=== PATIENT | male | born 1995 | race Caucasian/White ===

== ENCOUNTER 2020-07-18 17:11 | Emergency (ER) | payer OTHER, SELFPAY ==
[2020-07-18 17:20] VITALS: BP 149/77; PULSE 98; RESP 18; TEMP 36.7; O2SAT 99
--- NOTE | 2020-07-18 17:30 | ED.EAR ---
HPI - Ear Problem General Chief complaint: Ear Stated complaint: Left Ear Pain Time Seen by Provider: 07/18/20 17:30 Source: patient Mode of arrival: ambulatory Limitations: no limitations History of Present Illness HPI Narrative: 25 year old male with complaints of pain to his left ear since last pm with some decrease in his hearing and drainage with pain to his left ear starting today. Patient states that he also has some discomfort to the left side of his neck which feels like he has a swollen lymph node in his neck. Patient has some feelings of sinus congestion and drainage with some irritation to his throat with tonsils noted to be red and enlarged. Patient states history of previous ear infection to his left ear in the past. MD Complaint: ear pain, ear discharge, decreased hearing and other (sinus congestion and drainage and throat feels irritated) Location: left ear Duration: constant Severity: moderate Relieving factors: nothing Exacerbating factors: nothing Discharge from ear: Reports yes - clear Associated symptoms ear: decreased hearing, external ear tenderness, ear swelling and neck pain (enlarged lymph node) Treatment prior to arrival: none Related Data Home Medications Medication Instructions Recorded Confirmed No Home Medications 07/18/20 07/18/20 Allergies Allergy/AdvReac Type Severity Reaction Status Date / Time No Known Allergies Allergy Verified 07/18/20 17:36 Review of Systems Review of Systems: Narrative: CONSTITUTIONAL: Denies fever, chills, or sweats. EYES: Denies visual changes, redness, or discharge. ENT: Positive rhinorrhea, congestion, sore throat, left otalgia. CARDIOVASCULAR: Denies chest pain, palpitations, or edema. RESPIRATORY: Denies cough or dyspnea. GASTROINTESTINAL: Denies abdominal pain, nausea, vomiting, or diarrhea. GENITOURINARY: Denies dysuria or hematuria. SKIN: Denies rash or itching. MUSCULOSKELETAL: Denies back pain, joint pain, or myalgia. NEUROLOGIC: Denies headache, numbness, or weakness. PSYCHIATRIC: Denies anxiety or depression. All systems reviewed & are unremarkable except as noted in HPI and below PMFSH Past Medical History Medical History (Updated 07/18/20 @ 18:49 by Samira Bee NP) Ear infection Family History Family History Father Hypertension Mother Hypertension Social History Social History Smoking status: Former smoker Smoking end date: 09/15/13 Alcohol intake: current Comments At time of signature, agree with nursing past medical, surgical, social and family history. There is no relevant family history pertinent to the presenting complaint Exam Narrative: Exam Narrative: GENERAL: Well-appearing, well-nourished, and in no acute distress. HEAD: Normocephalic, atraumatic. EYES: PERRLA and EOMI. ENT: Nares red with clear rhinorrhea no epistaxis. Right TM normal with good light reflex, Left TM red swollen with clear drainage, ear canal red and swollen. Throat red with tonsils enlarged, no exudates or lesions noted, patient has post nasal drainage noted to the back of his throat. NECK: Supple.lymphadenopathy of left side CHEST: Clear to auscultation. No respiratory distress.SAO2 99% on room air HEART: Regular rate and rhythm. No murmur heard. Normal peripheral pulses. ABDOMEN: Soft, nontender, nondistended, normal active bowel sounds. EXTREMITIES: Normal range of motion. No edema. SKIN: Warm, dry, no rash. NEURO: No focal deficits. Alert and oriented x3. Course Vital Signs Vital signs: Vital Signs Temperature 36.7 C 07/18/20 17:20 Pulse Rate 98 07/18/20 17:20 Respiratory Rate 18 07/18/20 17:20 Blood Pressure 149/77 H 07/18/20 17:20 Pulse Oximetry 99 07/18/20 17: Temperature 36.7 C 07/18/20 17:20 Pulse Rate 98 07/18/20 17:20 Respiratory Rate 18 07/18/20 17:20 Blood Pressure 149/77 H
== END 2020-07-18 18:00 | disposition home or self-care (01) ==
PROVIDERS: Emergency Provider Registered Nurse
DX: H66.002 Acute suppurative otitis media without spontaneous rupture of ear drum, left ear (principal); H60.502 Unspecified acute noninfective otitis externa, left ear; Z87.891 Personal history of nicotine dependence
CPT/HCPCS: 87081; 87880; 99213; G0463